=== PATIENT | female | born 1960 ===

== ENCOUNTER 2024-09-06 05:05 | Day surgery (SDC) | payer OTHER ==
[~2024-09-06 05:05] MED LIST: CANDESARTAN CILE8 MG PO; CATAFLAN; CRESTOR40 MG PO; SYNTHROID100 MCG PO; ZETIA10 MG PO
[2024-09-06] MEDS ORDERED: CEFAZOLIN SODIUM 1,000 MG VIAL IV ONE (08:45)
[2024-09-06] MEDS ORDERED: GENTAMICIN SULFATE 40 MG/ML VIAL IR ONE (08:45)
[2024-09-06] MEDS ORDERED: CHLORHEXIDINE GLUCONATE 120 ML BOTTLE TOP ONE (08:45)
[2024-09-06] MEDS ORDERED: MACROBID 100 M100 MG PO (10:24)
[2024-09-06] MEDS ORDERED: TRAM1TAB98 PO (10:25)
== END 2024-09-06 12:25 | disposition home or self-care (01) ==
LOC: CIR.AMB 05:05
PROVIDERS: ATTEND Obstetrics & Gynecology Gynecology
DX: N81.11 Cystocele, midline (principal); N81.5 Vaginal enterocele; I10 Essential (primary) hypertension; E03.8 Other specified hypothyroidism